=== PATIENT | male | born 1960 | race Caucasian/White ===

== ENCOUNTER → 2023-07-26 13:11 | Outpatient (CLI) | payer OTHER, SELFPAY ==
[2023-07-26 19:47] LABS: Alanine Aminotransferase 12 IU/L (<50); Albumin 3.9 g/dL (3.5-5.0); Albumin Globulin Ratio 1.4 (1.0-2.8); Alkaline Phosphatase 72 U/L (38-126); Aspartate Aminotransferase 31 IU/L (17-59); BUN Creatinine Ratio 20.3 (6-22); Bilirubin Total 0.7 mg/dL (0.2-1.3); Blood Urea Nitrogen 16 mg/dL (9-20); Calcium 9.5 mg/dL (8.4-10.2); Carbon Dioxide 25 mmol/L (22-32); Chloride 109 mmol/L (98-107); Estimated Glomerular Filt Rate > 60 mL/min (>60); Globulin 2.7 g/dL (1.7-4.1); Glucose 97 mg/dL (80-110); HEMOLYSIS < 15 (0-50); Potassium 4.6 mmol/L (3.4-5.1); Sodium 137 mmol/L (137-145); Total Protein 6.6 g/dL (6.3-8.2)
[2023-07-26 19:53] LABS: Add Manual Diff / Slide Review NO; Basophils Absolute Auto 100 /uL (0-100); Basophils Percent Auto 1.2 % (0-2); Eosinophils Absolute Auto 200 /uL (0-450); Eosinophils Percent Auto 4.5 % (2-4); Hematocrit 41.6 % (41-53); Hemoglobin 14.3 g/dL (13.5-17.5); Lymphocytes Absolute Auto 1200 /uL (1100-4500); Lymphocytes Percent Auto 23.9 % (25-40); Mean Corpuscular HGB Conc 34.4 % (30-36); Mean Corpuscular Hemoglobin 31.4 PG (26-34); Mean Corpuscular Volume 91.3 fL (80-100); Monocytes Absolute Auto 400 /uL (0-900); Monocytes Percent Auto 7.7 % (3-14); Neutrophils Absolute Auto 3200 /uL (1500-7000); Neutrophils Percent Auto 62.7 % (50-75); Platelet Count 175 X10^3/uL (150-400); Red Blood Cell Count 4.56 X10^6/uL (4.5-5.9); Red Cell Distribution Width 12.9 % (11.6-14.8); White Blood Cell Count 5.1 X10^3/uL (4.5-11.0)
[2023-07-26 19:59] LABS: Hemoglobin A1C% w Est Avg Glu 5.5 % (4.0-6.0); LDL Cholesterol Direct 110 mg/dL (<100)
[2023-07-26 20:18] LABS: Prostate Specific Antigen 0.608 ng/mL (0.10-4.00)
[2023-07-26 20:22] LABS: Ferritin 12 ng/mL (18-464)
[2023-07-26 20:24] LABS: TSH w/ Reflex to FT4 1.17 uIU/mL (0.47-4.68)
[2023-07-26 20:37] LABS: Vitamin B12 Reflex MMA if <400 274 pg/mL (239-931)
[2023-07-30 18:37] LABS: Methylmalonic Acid,Serum 137 nmol/L (0-378)
== END ==
PROVIDERS: PCP Family Medicine; Visit Provider Family Medicine
DX: R53.83 Other fatigue (principal); G20.A1 Parkinson's disease without dyskinesia, without mention of fluctuations; R03.0 Elevated blood-pressure reading, without diagnosis of hypertension; R41.89 Other symptoms and signs involving cognitive functions and awareness
CPT/HCPCS: 80053; 82607; 82728; 83036; 83721; 83921; 84153; 84443; 85025

== ENCOUNTER → 2025-01-03 11:41 | Outpatient (CLI) | payer MEDICARE, OTHER, SELFPAY ==
[2025-01-03 19:52] LABS: Hematocrit 41.0 % (41-53); Hemoglobin 14.6 g/dL (13.5-17.5); Mean Corpuscular HGB Conc 35.6 % (30-36); Mean Corpuscular Hemoglobin 32.7 PG (26-34); Mean Corpuscular Volume 91.9 fL (80-100); Platelet Count 161 X10^3/uL (150-400)
[2025-01-03 20:02] LABS: Alanine Aminotransferase 18 IU/L (<50); Albumin 4.2 g/dL (3.5-5.0); Albumin Globulin Ratio 1.6 (1.0-2.8); Alkaline Phosphatase 80 U/L (38-126); Blood Urea Nitrogen 20 mg/dL (9-20); Calcium 9.2 mg/dL (8.4-10.2); Carbon Dioxide 28 mmol/L (22-32); Chloride 103 mmol/L (98-107); Cholesterol 199 mg/dL (140-199); Estimated Glomerular Filt Rate > 60 mL/min (>60); Globulin 2.6 g/dL (1.7-4.1); Glucose 88 mg/dL (70-99); HDL Cholesterol 52 mg/dL (40-60); HEMOLYSIS < 15 (0-50); Potassium 4.1 mmol/L (3.4-5.1); Sodium 136 mmol/L (137-145); Total Protein 6.8 g/dL (6.3-8.2); Triglycerides 113 mg/dL (35-150)
[2025-01-03 20:29] LABS: Thyroid Stimulating Hormone 1.68 uIU/mL (0.47-4.68)
[2025-01-03 20:33] LABS: Ferritin 96 ng/mL (18-464)
[2025-01-03 20:36] LABS: Band Neutrophils Percent 1.0 % (3-7); Eosinophils Percent Manual 3.0 % (2-4); Lymphocytes Percent Manual 24.0 % (25-45); Monocytes Percent Manual 8.0 % (2-11); Neutrophils Absolute Manual 2925 /uL (3000-5900); RBC Morphology Normal Morphology; Segmented Neutrophils Percent 64.0 % (38-70); Total Cells Counted 100
[2025-01-03 20:48] LABS: Vitamin B12 > 1000 pg/mL (239-931)
== END ==
PROVIDERS: PCP Family Medicine; Visit Provider Family Medicine
DX: Z13.6 Encounter for screening for cardiovascular disorders (principal); R03.0 Elevated blood-pressure reading, without diagnosis of hypertension; R53.83 Other fatigue; E61.1 Iron deficiency; G47.00 Insomnia, unspecified; E53.8 Deficiency of other specified B group vitamins
CPT/HCPCS: 80053; 80061; 82607; 82728; 84443; 85025